=== PATIENT | female | born 1970 | race American Indian/Alaskan Native ===

== ENCOUNTER 2018-02-08 11:49 | Emergency (ER) | payer BC, OTHER ==
[2018-02-08 12:00] VITALS: BMI 29.3
[2018-02-08 12:01] VITALS: BP 122/77; PULSE 91; RESP 17; TEMP 98.7; O2SAT 97
--- NOTE | 2018-02-08 12:50 | ED PDOC ---
HPI: Eye Injury/Pain Time Seen by Provider: 02/08/18 12:35 Chief Complaint (Nursing): Eye Problem Chief Complaint (Provider): eye discharge History Per: Patient History/Exam Limitations: no limitations Onset/Duration Of Symptoms: Gradual (x2 weeks), Worse Since (this morning) Current Symptoms Are (Timing): Still Present Injury To Eye?: No Additional Complaint(s): 47 year old female arrives to ED for evaluation of purulent discharge and itchiness to bilateral eyes since this morning. Patient has had watery discharge to both eyes as well as itchiness for 2 weeks but today noticed purulent discharge and matted eyelashes bilaterally. She denies fever or chills, denies foreign body sensation to either eye. Patient does not wear contact lenses. PMD: none Past Medical History Reviewed: Historical Data, Nursing Documentation, Vital Signs Vital Signs: Last Vital Signs Temp 98.7 F 02/08/18 12:00 Pulse 91 H 02/08/18 12:00 Resp 17 02/08/18 12:00 BP 122/77 02/08/18 12:00 Pulse Ox 97 02/08/18 12:00 - Medical History PMH: No Chronic Diseases - Surgical History Surgical History: Appendectomy Other surgeries: left rotator cuff surgery - Family History Family History: States: No Known Family Hx - Living Arrangements Living Arrangements: With Family - Social History Current smoker - smoking cessation education provided: No Alcohol: None Drugs: Denies - Home Medications Home Medications: Ambulatory Orders Medication Instructions Recorded Dexamethasone/Tobramycin [Tobradex 1 drop TOP QID #1 bottle 02/08/18 0.1%-0.3% 2.5 Ml] Olopatadine HCl [Pataday 2.5 ml] 1 drop BOTHEYES DAILY #1 bottle 02/08/18 - Allergies Allergies/Adverse Reactions: Allergies Allergy/AdvReac Type Severity Reaction Status Date / Time acetaminophen [From Percocet] Allergy RASH Verified 02/08/18 12:20 oxycodone [From Percocet] Allergy RASH Verified 02/08/18 12:20 Review of Systems ROS Statement: Except As Marked, All Systems Reviewed And Found Negative Constitutional: Negative for: Fever Eyes: Positive for: Other (discharge and itchiness to both eyes). Negative for: Pain, Vision Change Neurological: Negative for: Headache, Dizziness Physical Exam - Reviewed Nursing Documentation Reviewed: Yes Vital Signs Reviewed: Yes - Physical Exam Appears: Positive for: Well, Non-toxic, No Acute Distress Skin: Positive for: Normal Color. Negative for: Rash Eye Exam: Positive for: EOMI, PERRL, Periorbital tenderness, Conjunctival injection (and edema bilaterally), Other (purelent discharge bilaterally, no periorbital cellulitis bilaterally) ENT: Positive for: Normal ENT Inspection Cardiovascular/Chest: Positive for: Regular Rate, Rhythm Respiratory: Positive for: Normal Breath Sounds. Negative for: Respiratory Distress Extremity: Positive for: Normal ROM. Negative for: Pedal Edema Neurologic/Psych: Positive for: Alert (x3), Oriented - ECG O2 Sat by Pulse Oximetry: 97 (RA) Pulse Ox Interpretation: Normal Medical Decision Making Medical Decision Making: Initial Impression: B/l Conjunctivitis Time: 1247 --Upon provider evaluation, patient is medically stable and requires no further treatment in the ED at this time. Patient will be discharged home with Rx for Tobrdex and Pataday eye drops. Counseling was provided and all questions were answered regarding diagnosis. There is agreement to discharge plan. Return to ED or follow up with an eye doctor if symptoms persist or worsen, referral provided. Clinical Impression: Conjunctivitis -- Scribe Attestation: Documented by Monalisa Cisse, acting as a scribe for Preeti Saez PA-C. Provider Scribe Attestation: All medical record entries made by the Scribe were at my direction and personally dictated by me. I have reviewed the chart and agree that the record accurately reflects my personal performance of the history, physical exam, medical decision making, and the department course for this patient. I have also personally directed, reviewed, and agree with the discharge instructions and disposition. Disposition - Clinical Impression Clinical Impression: Conjunctivitis - Patient ED Disposition Is Patient to be Admitted: No Counseled Patient/Family Regarding: Diagnosis, Need For Followup, Rx Given, Smoking Cessation - Disposition Referrals: Malcolm Black MD [Medical Doctor] - Disposition: Routine/Home Disposition Time: 12:47 Condition: STABLE Additional Instructions: Apply drops as directed. Follow up with eye doctor for any persistent symptoms. Prescriptions: Dexamethasone/Tobramycin [Tobradex 0.1%-0.3% 2.5 Ml] 1 drop TOP QID #1 bottle Olopatadine HCl [Pataday 2.5 ml] 1 drop BOTHEYES DAILY #1 bottle Instructions: Conjunctivitis ([place]) Forms: [facility] ([place]), [facility] ED School/Work Excuse
== END 2018-02-08 13:52 | disposition home or self-care (01) ==
LOC: H.ER 11:49
DX: H10.9 Unspecified conjunctivitis (principal)

== ENCOUNTER 2018-06-06 12:55 | Emergency (ER) | payer BC ==
[2018-06-06 12:56] VITALS: BMI 29.3
[2018-06-06 13:28] VITALS: O2SAT 100
--- NOTE | 2018-06-06 15:55 | ED PDOC ---
HPI: Influenza Time Seen by Provider: 06/06/18 14:20 Chief Complaint: Flu-like Symptoms Past Medical History Vital Signs: Last Vital Signs Temp 98.4 F 06/06/18 13:25 Pulse 86 06/06/18 13:25 Resp 20 06/06/18 13:25 BP 162/106 H 06/06/18 13:25 Pulse Ox 100 06/06/18 13:25 - Surgical History Surgical History: Appendectomy - Family History Family History: States: Unknown Family Hx - Home Medications Home Medications: Ambulatory Orders Medication Instructions Recorded Dexamethasone/Tobramycin [Tobradex 1 drop TOP QID #1 bottle 02/08/18 0.1%-0.3% 2.5 Ml] Olopatadine HCl [Pataday 2.5 ml] 1 drop BOTHEYES DAILY #1 bottle 02/08/18 Amoxicillin/Clavulanate [Augmentin 1 tab PO BID #20 tab 06/06/18 875 MG-125 MG] Lidocaine 2% Viscous 5 ml MM QID #100 ml 06/06/18 Losartan/Hydrochlorothiazide 1 tab PO DAILY #30 tablet 06/06/18 [Losartan-Hctz 50-12.5 mg Tab] - Allergies Allergies/Adverse Reactions: Allergies Allergy/AdvReac Type Severity Reaction Status Date / Time acetaminophen [From Percocet] Allergy RASH Verified 02/08/18 12:20 oxycodone [From Percocet] Allergy RASH Verified 02/08/18 12:20 - ECG O2 Sat by Pulse Oximetry: 100 Disposition - Clinical Impression Clinical Impression: Influenza-like symptoms - Patient ED Disposition Is Patient to be Admitted: No Doctor Will See Patient In The: Office - Disposition Disposition: Routine/Home Disposition Time: 15:53 Condition: STABLE Prescriptions: Amoxicillin/Clavulanate [Augmentin 875 MG-125 MG] 1 tab PO BID #20 tab Lidocaine 2% Viscous 5 ml MM QID #100 ml Losartan/Hydrochlorothiazide [Losartan-Hctz 50-12.5 mg Tab] 1 tab PO DAILY #30 tablet Instructions: Cough, Runny Nose, and the Common Cold (DC), High Blood Pressure (DC)
[2018-06-06 16:15] VITALS: BP 160/110; PULSE 68; RESP 16; TEMP 98
== END 2018-06-06 16:15 | disposition home or self-care (01) ==
LOC: H.ER 12:55
DX: J11.1 Influenza due to unidentified influenza virus with other respiratory manifestations (principal); Z88.5 Allergy status to narcotic agent

== ENCOUNTER 2018-06-12 10:11 | Emergency (ER) | payer BC ==
[2018-06-12 10:27] VITALS: BMI 30.2
[2018-06-12 10:28] VITALS: BP 121/84; PULSE 100; RESP 16; TEMP 98.3
[2018-06-12 10:35] VITALS: O2SAT 98
[2018-06-12 11:55] LABS: BASO # 0.1 K/uL (0.0-0.2); BASO % 0.9 % (0.0-2.0); EOS # 0.1 K/uL (0.0-0.7); EOS % 0.6 % (0.0-4.0); HEMOGLOBIN 12.5 g/dL (12.0-16.0); LYMPH # 1.6 K/uL (1.0-4.3); LYMPH % 10.1 % (20.0-40.0); MEAN CELL VOLUME 80.3 fl (81.0-99.0); MEAN CORPUSCULAR HEMOGLOBIN 25.3 pg (27.0-31.0); MEAN CORPUSCULAR HGB CONC 31.5 g/dL (33.0-37.0); MEAN PLATELET VOLUME 9.4 fl (7.2-11.7); MONO # 1.1 K/uL (0.0-0.8); MONO % 7.1 % (0.0-10.0); NEUT # 12.6 K/uL (1.8-7.0); NEUT % 81.3 % (50.0-75.0); NRBC % 0.1 % (0.0-0.0); RBC 4.95 Mil/uL (3.80-5.20); RED CELL DISTRIBUTION WIDTH 24.1 % (11.5-14.5); WHITE BLOOD COUNT 15.5 K/uL (4.8-10.8)
--- NOTE | 2018-06-12 12:09 | ED PDOC ---
Syncope/Near Syncope/Dizziness Time Seen by Provider: 06/12/18 10:35 Chief Complaint (Nursing): Dizziness/Lightheaded History Per: Patient (Ms. 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 Patient states that she is under a lot of stress. She was started on Losartan/HCTZ when she was found to have hypertension during a visit for a unrelated complaint in which she was treated for a throat infection with amoxicillin. ) History/Exam Limitations: no limitations Onset/Duration Of Symptoms: Sudden Onset Current Symptoms Are (Timing): Gone Now Past Medical History Reviewed: Historical Data, Nursing Documentation, Vital Signs Vital Signs: Last Vital Signs Temp 98.3 F 06/12/18 10:27 Pulse 100 H 06/12/18 10:27 Resp 16 06/12/18 10:27 BP 121/84 06/12/18 10:27 Pulse Ox 98 06/12/18 10:31 BINA Report Viewed: No - Medical History PMH: HTN - Surgical History Surgical History: Appendectomy - Family History Family History: States: Unknown Family Hx - Living Arrangements Living Arrangements: With Family - Social History Current smoker - smoking cessation education provided: No Alcohol: None - Home Medications Home Medications: Ambulatory Orders Medication Instructions Recorded Dexamethasone/Tobramycin [Tobradex 1 drop TOP QID #1 bottle 02/08/18 0.1%-0.3% 2.5 Ml] Olopatadine HCl [Pataday 2.5 ml] 1 drop BOTHEYES DAILY #1 bottle 02/08/18 Amoxicillin/Clavulanate [Augmentin 1 tab PO BID #20 tab 06/06/18 875 MG-125 MG] Lidocaine 2% Viscous 5 ml MM QID #100 ml 06/06/18 Losartan/Hydrochlorothiazide 1 tab PO DAILY #30 tablet 06/06/18 [Losartan-Hctz 50-12.5 mg Tab] - Allergies Allergies/Adverse Reactions: Allergies Allergy/AdvReac Type Severity Reaction Status Date / Time acetaminophen [From Percocet] Allergy RASH Verified 02/08/18 12:20 oxycodone [From Percocet] Allergy RASH Verified 02/08/18 12:20 Review of Systems ROS Statement: Except As Marked, All Systems Reviewed And Found Negative Constitutional: Negative for: Fever, Chills Cardiovascular: Positive for: Palpitations Neurological: Positive for: Dizziness Physical Exam - Reviewed Nursing Documentation Reviewed: Yes Vital Signs Reviewed: Yes - Physical Exam Appears: Positive for: Well, Non-toxic, No Acute Distress Head Exam: Positive for: ATRAUMATIC, NORMAL INSPECTION, NORMOCEPHALIC Skin: Positive for: Normal Color, Warm, DRY Eye Exam: Positive for: EOMI, Normal appearance, PERRL ENT: Positive for: Normal ENT Inspection Neck: Positive for: Normal, Painless ROM Cardiovascular/Chest: Positive for: Regular Rate, Rhythm Respiratory: Positive for: CNT, Normal Breath Sounds Gastrointestinal/Abdominal: Positive for: Normal Exam, Soft Back: Positive for: Normal Inspection Extremity: Positive for: Normal ROM Neurologic/Psych: Positive for: Alert, Oriented - Laboratory Results Result Diagrams: 06/12/18 11:45 - ECG O2 Sat by Pulse Oximetry: 98 Medical Decision Making Medical Decision Making: blood specimen - hemolyzed. patient refused repeat blood draw because she is hungry. concern is that she was started Disposition - Clinical Impression Clinical Impression: Dizziness - Patient ED Disposition Is Patient to be Admitted: No Doctor Will See Patient In The: Office Counseled Patient/Family Regarding: Diagnosis, Need For Followup - Disposition Disposition: Against Medical Advice Disposition Time: 13:00 Condition: STABLE Instructions: Dizziness, Nonvertigo, (DC) Forms: [facility] ([place]), [facility] ED School/Work Excuse - POA Present On Arrival: None
--- NOTE | 2018-06-12 17:48 | CARD ---
APPROVED REPORT Date of service: 06/12/2018 EKG Measurement Heart [id number] <Conclusion> Normal sinus rhythm Prolonged QT Abnormal ECG
== END 2018-06-12 13:34 | disposition left against medical advice (07) ==
LOC: H.ER 10:11
DX: R42 Dizziness and giddiness (principal); I10 Essential (primary) hypertension; Z88.5 Allergy status to narcotic agent